=== PATIENT | male | born 1965 | race Caucasian/White ===

== ENCOUNTER 2019-06-16 17:28 | Emergency (ER) | payer BC, OTHER ==
[2019-06-16 18:13] VITALS: BP 139/81
--- NOTE | 2019-06-16 18:15 | UC ---
Laceration HPI - HPI Summary HPI Summary: Patient is a 53yo male presenting with laceration of R wrist that occurred 3 hours ago while working with an angle salt grinder on a car. Patient states that it bled immediately but he "threw a rag over it, got the bleeding to stop, and kept working." Patient denies pain. Denies numbness and tingling. Denies decreased ROM. Patient notes UTD on tetanus within last 5 years. - History Of Current Complaint Chief Complaint: UCLaceration Stated Complaint: RIGHT WRIST LACERATION Hx Obtained From: Patient Pain Intensity: 0 Pain Scale Used: 0-10 Numeric - Allergies/Home Medications Allergies/Adverse Reactions: Allergies Allergy/AdvReac Type Severity Reaction Status Date / Time Penicillins Allergy Unknown Verified 06/16/19 18:08 Reaction Details Sulfa (Sulfonamide Allergy Unknown Verified 06/16/19 18:08 Antibiotics) Reaction Details Home Medications: Home Medications NK [No Home Medications Reported] 06/16/19 [History Confirmed 06/16/19] PMH/Surg Hx/FS Hx/Imm Hx Previously Healthy: Yes - Surgical History Surgical History: Yes Surgery Procedure, Year, and Place: T&A, ~1970, [place] - Family History Known Family History: Positive: Non-Contributory - Social History Occupation: Employed Full-time Lives: With Family Alcohol Use: Rare Substance Use Type: None Smoking Status (MU): Heavy Every Day Tobacco Smoker Type: Cigarettes Amount Used/How Often: 3/4 PPD Length of Time of Smoking/Using Tobacco: Since Age 20 - Immunization History Most Recent Tetanus Shot: "I think it was just a couple years ago but I'm not positive." Review of Systems All Other Systems Reviewed And Are Negative: Yes Skin: Positive: Other - R wrist laceration Respiratory: Positive: Negative Cardiovascular: Positive: Negative Gastrointestinal: Positive: Negative Musculoskeletal: Positive: Negative. Negative: Arthralgia, Decreased ROM, Edema Neurological: Negative: Weakness, Paresthesia, Numbness Physical Exam Triage Information Reviewed: Yes Appearance: Well-Appearing, No Pain Distress, Well-Nourished Vital Signs: Initial Vital Signs Temp 98.5 F 06/16/19 18:06 Pulse 80 06/16/19 18:06 Resp 16 06/16/19 18:06 BP 139/81 06/16/19 18:06 Pulse Ox 99 06/16/19 18:06 Vital Signs Reviewed: Yes Eyes: Positive: Conjunctiva Clear ENT: Positive: Hearing grossly normal Neck: Positive: Supple Respiratory: Positive: No respiratory distress Cardiovascular: Positive: Pulses Normal - strong radial pulses b/l, Brisk Capillary Refill - <2 sec Musculoskeletal: Positive: Strength Intact, ROM Intact - right wrist flexion/ extension. right thumb flexion/extension, No Edema Neurological Exam: Other - sensation grossly intact Neurological: Positive: Alert Psychological: Positive: Age Appropriate Behavior Skin: Positive: Other - ~3.0cm long x 0.5cm deep nonbleeding lac noted over radial aspect of dorsal wrist. no foreign body noted Laceration Repair - Laceration Repair R wrist Description: Linear Laceration Size After Repair: Length (cm) - 3.0cm, Depth (mm) - 5mm Contamination/FB Removal: none Modified For Repair: No Anesthesia Used: 1.0% Lido Cleansing Completed Via Routine Prep: Yes Irrigation With Pressure Irrigation Device: Yes Closure Material: Sutures - 4 Closure Method: Single Layer Suture Of: Skin Suture Type: Prolene - 4-0 Laceration Course/Dx - Course/Dx Course Of Treatment: Wound was irrigated. I performed a time out before repairing the laceration. Patient received 4 sutures and tolerated procedure well. Dressing was applied to wound. Patient UTD on tetanus. Educated on s/s of infection and to monitor the area and return if he experiences any red flags. Educated on suture care and to return in 10 days for removal. Patient voiced understanding and agreed with treatment plan. - Diagnosis Provider Diagnosis: Laceration of right wrist without complication Discharge ED - Sign-Out/Discharge Documenting (check all that apply): Patient Departure All imaging exams completed and their final reports reviewed: No Studies - Discharge Plan Condition: Stable Disposition: HOME Patient Education Materials: Care For Your Stitches (ED) Referrals: Irish Vincent MD [Primary Care Provider] - Additional Instructions: You received 4 stitches today. Keep your stitches clean and dry for the first 48 hours. After that, gently wash with soap and water daily. Your stitches will not absorb. Follow up with your PCP or return in 10 days to have your stitches removed. Return or go to the emergency department if you notice any redness, swelling, fluid drainage, fever, or nausea and vomiting. - Billing Disposition and Condition Condition: STABLE Disposition: Home
[2019-06-16] MEDS ORDERED: Lidocaine 1% MPF ** 5 ML VIAL INJ ONE (18:30)
== END 2019-06-16 19:26 | disposition home or self-care (01) ==
LOC: UCCORT 17:28
DX: S61.511A Laceration without foreign body of right wrist, initial encounter (principal); W31.89XA Contact with other specified machinery, initial encounter; Y92.810 Car as the place of occurrence of the external cause; Z88.0 Allergy status to penicillin; Z88.2 Allergy status to sulfonamides; F17.210 Nicotine dependence, cigarettes, uncomplicated
CPT/HCPCS: 12002; 99201; G0463